=== PATIENT | female | born 1985 | race Caucasian/White ===

== ENCOUNTER 2016-05-07 00:38 | Emergency (ER) | payer SELFPAY ==
[~2016-05-07] VITALS: Ht 165.1 cm; Wt 68.5 kg
[2016-05-07 00:50] VITALS: Ht 165.1 cm; Wt 68.5 kg
--- NOTE | 2016-05-07 03:35 | ERD ---
ER Documentation Chief Complaint Date/Time DATE: 05/07/16 TIME: 03:34 Chief Complaint r flank pain that started today HPI 30-year-old female presents here in emergency department for complaints of right flank pain started today. Patient described the pain as sharp pain, 6/10 scale, not better or worse with anything. Patient denies any hematuria or dysuria. Patient denies any fever or chills. Patient denies any constipation diarrhea or vomiting. ROS All systems reviewed and are negative except as per history of present illness. Medications Home Meds Active Scripts Ondansetron (Ondansetron Odt) 4 Mg Tab.rapdis, 4 MG PO Q8 Y for NAUSEA AND/OR VOMITING, #30 TAB Prov:ESTRELLA ADHIKARI NP 05/07/16 Phenazopyridine Hcl* (Pyridium*) 200 Mg Tab, 200 MG PO TID Y for URINARY PAIN, # 6 TAB Prov:ESTRELLA ADHIKARI NP 05/07/16 Cephalexin* (Keflex*) 500 Mg Capsule, 500 MG PO QID for 10 Days, CAP Prov:ESTRELLA ADHIKARI [employer] M 05/07/16 Ibuprofen* (Motrin*) 600 Mg Tab, 600 MG PO Q6H Y for PAIN AND OR ELEVATED TEMP, #30 TAB Prov:ESTRELLA ADHIKARI NP 05/07/16 Tramadol HCl (Tramadol HCl) 50 Mg Tablet, 50 MG PO Q6 Y for PAIN, #20 TAB Prov:ESTRELLA ADHIKARI NP 05/07/16 Reported Medications [none] Unknown Strength No Conflict Check 05/07/16 Allergies Allergies: Coded Allergies: No Known Allergy (Unverified , 05/07/16) PMhx/Soc Medical and Surgical Hx: pt denies Medical Hx, pt denies Surgical Hx Hx Alcohol Use: Yes (occasionally) Hx Substance Use: Yes (occasionally) Hx Tobacco Use: No Smoking Status: Never smoker FmHx Family History: diabetes Physical Exam Vitals Vital Signs Date Time Temp Pulse Resp B/P Pulse Ox O2 Delivery O2 Flow Rate FiO2 05/07/16 00:50 99.7 108 18 152/94 98 Physical Exam GENERAL: The patient is well developed and appropriate for usual state of health, in no apparent distress. CHEST: Clear to auscultation bilaterally. There are no rales, wheezes or rhonchi. HEART: Regular rate and rhythm. No murmurs, clicks, rubs or gallops. No S3 or S4. ABDOMEN: Soft, nontender and nondistended. Good bowel sounds. No rebound or guarding. No gross peritonitis. No gross organomegaly or masses. No Brito sign or McBurney point tenderness. BACK: No midline or flank tenderness. EXTREMITIES: Equal pulses bilaterally. There is no peripheral clubbing, cyanosis or edema. No focal swelling or erythema. Full range of motion. Grossly neurovascularly intact. NEURO: Alert and oriented. Cranial nerves 2-12 intact. Motor strength in all 4 extremities with 5/5 strength. Sensation grossly intact. Normal speech and gait. SKIN: There is no apparent rash or petechia. The skin is warm and dry. HEMATOLOGIC AND LYMPHATIC: There is no evidence of excessive bruising or lymphedema. No gross cervical, axillary, or inguinal lymphadenopathy. Result Diagram: 05/07/165 05/07/16 0405 Results 24 hrs Laboratory Tests Test 05/07/16 04:05 Alanine Aminotransferase (ALT/SGPT) 27IU/L Albumin 4.5g/dl Albumin/Globulin Ratio 1.12 Alkaline Phosphatase 107IU/L Anion Gap 20 Aspartate Amino Transf (AST/SGOT) 20IU/L Basophils # 0.010^3/ul Basophils % 0.3% Blood Urea Nitrogen 23mg/dl Calcium Level 9.3mg/dl Carbon Dioxide Level 17mmol/L Chloride Level 108mmol/L Creatinine 0.63mg/dl Direct Bilirubin 0.00mg/dl Eosinophils # 0.010^3/ul Eosinophils % 0.0% Globulin 4.00g/dl Glucose Level 118mg/dl Hematocrit 44.1% Hemoglobin 14.9g/dl Indirect Bilirubin 0.1mg/dl Lipase 150U/L Lymphocytes # 1.310^3/ul Lymphocytes % 9.7% Mean Corpuscular Hemoglobin 31.3pg Mean Corpuscular Hemoglobin Concent 33.8g/dl Mean Corpuscular Volume 92.6fl Mean Platelet Volume 10.2fl Monocytes # 0.210^3/ul Monocytes % 1.7% Neutrophils # 11.510^3/ul Neutrophils % 88.3% Nucleated Red Blood Cells # 0.010^3/ul Nucleated Red Blood Cells % 0.0/100WBC Platelet Count 91155^3/UL Potassium Level 3.9mmol/L Red Blood Count 4.7710^6/ul Red Cell Distribution Width 13.0% Sodium Level 141mmol/L Total Bilirubin 0.1mg/dl Total Protein 8.5g/dl Urine Bacteria FEW Urine Bilirubin NEGATIVE Urine Clarity CLEAR Urine Color LT. YELLOW Urine Glucose NEGATIVE% Urine Hemoglobin NEGATIVE Urine Ketones 15 Urine Leukocyte Esterase TRACE Urine Microscopic RBC 0-2/HPF Urine Microscopic WBC 0-2/HPF Urine Nitrite NEGATIVE Urine Test NEGATIVE Urine Specific [place] 1.015 Urine Squamous Epithelial Cells FEW Urine Total Protein NEGATIVE Urine Urobilinogen 1.0 E.U./dL Urine pH 8.5 White Blood Count 13.110^3/ul Patient was given medication for pain here in emergency department, after treatment, patient verbalized feeling much better. Patient's pain is improved. PROCEDURE: CT Abdomen and Pelvis without contrast. CLINICAL INDICATION: Abdominal pain. TECHNIQUE: Routine tomographic images of the abdomen and pelvis were obtained from the domes of the diaphragm to the symphysis pubis. The patient was scanned withoutoral or intravenous contrast. Coronal and sagittal reformatted images were obtained from the axial source images. Images were reviewed on a high-resolution PACS workstation. The total exam CTDI equals 8.46 mGy and the total exam DLP equals 476.07 mGy-cm. One or more of the following dose reduction techniques were used: Automated exposure control, adjustment of the mA and / or kV according to patient size, or use of iterative reconstruction technique. COMPARISON: None. FINDINGS: The visualized portions of the lung bases are clear. Evaluation of the intra -abdominal solid organs is limited on this noncontrast examination. The liver appears normal in size. There is no intra or extrahepatic biliary dilatation. The gallbladder is unremarkable by CT criteria. The spleen, pancreas, and adrenal glands are unremarkable. The kidneys are symmetric in size. No renal, ureteral, or bladder calculi are identified. No perinephric inflammatory changes are identified. The urinary bladder is grossly unremarkable. The bowel demonstrates normal course and caliber. There is no evidence of bowel obstruction. The appendix is normal in appearance. No intraperitoneal free fluid, free air or abscess is identified. The uterus and adnexa are unremarkable. The aorta is normal in caliber. No retroperitoneal, mesenteric, or inguinal lymphadenopathy is identified. The osseous structures are unremarkable. No significant subcutaneous soft tissue abnormalities are seen. IMPRESSION: Limited, noncontrast CT the abdomen and pelvis. No acute intra-abdominal abnormality is appreciated. RPTAT: HH .Santa Mcdonnell MD, MD Date Time Electronically viewed and signed by .Santa Mcdonnell MD, MD on 05/07/2016 05 :22 .G/ CC: ESTRELLA ADHIKARI [employer] M Procedures/MDM Medical Decision Making: Patient flank pain nonspecific at this time, patient is trace of leukocytes in the urine, may be early urinary tract infection, will be treated. No symptoms of pyelonephritis at this time. There is low suspicion for abdominal emergencies at this time. Patients abdominal exam is normal at this time. Patients radiology exam does not show any abdominal emergencies at this time. There is low suspicion for appendicitis, cholecystitis, abdominal aortic aneurysms or peritonitis at this time. There is low suspicion for sepsis. Patient appears well and is hemodynamically stable. Disposition: Home. Condition: Stable Prescription tramadol, Keflex, ibuprofen, Zofran Instructions: Patient is advised to take medications as prescribed. Patient is advised to rest, increase fluid intake and do brat diet for next 1-2 days and progress as tolerated. Patient is advised that if symptoms are worse, severe abdominal pain, uncontrolled vomiting, high fever, severe flank pain, worst signs and symptoms, to return to the emergency department immediately. Otherwise, patient can follow up with primary care doctor in 5-7 days. Departure Diagnosis: Primary Impression: Flank pain Additional Impression: UTI (urinary tract infection) Urinary tract infection type: acute cystitis Hematuria presence: without hematuria Qualified Code: N30.00 - Acute cystitis without hematuria Condition: Stable Patient Instructions: Flank Pain, Uncertain Cause, Understanding Urinary Tract Infections (UTIs) Additional Instructions: Patient is advised to take medications as prescribed. Patient is advised to rest , increase fluid intake and do brat diet for next 1-2 days and progress as tolerated. Patient is advised that if symptoms are worse, severe abdominal pain , uncontrolled vomiting, high fever, severe flank pain, worst signs and symptoms , to return to the emergency department immediately. Otherwise, patient can follow up with primary care doctor in 5-7 days. ESTRELLA ADHIKARI NP May 07, 2016 03:35
[2016-05-07 04:43] LABS: ALBUMIN 4.5 g/dl (3.3-4.9); POTASSIUM 3.9 mmol/L (3.5-5.1)
[2016-05-07 04:45] LABS: BASOPHILS % 0.3 % (0.0-2.0); CREATININE 0.63 mg/dl (0.44-1.00); HEMATOCRIT 44.1 % (37.0-47.0); HEMOGLOBIN 14.9 g/dl (12.0-16.0); LYMPHOCYTES # 1.3 10^3/ul (0.8-2.9); LYMPHOCYTES % 9.7 % (15.0-51.0); MEAN CORPUSCULAR HEMOGLOBIN 31.3 pg (29.0-33.0); MEAN CORPUSCULAR HGB CONC 33.8 g/dl (32.0-37.0); MEAN CORPUSCULAR VOLUME 92.6 fl (82.0-101.0); MEAN PLATELET VOLUME 10.2 fl (7.4-10.4); MONOCYTE # 0.2 10^3/ul (0.3-0.9); MONOCYTES % 1.7 % (0.0-11.0); NEUTROPHIL # 11.5 10^3/ul (1.6-7.5); NEUTROPHILS % 88.3 % (39.0-77.0); PLATELET COUNT 266 10^3/UL (140-440); RED BLOOD COUNT 4.77 10^6/ul (4.20-5.40); UNCORRECTED WBC 13.1 10^3/ul (4.8-10.8); WHITE BLOOD COUNT 13.1 10^3/ul (4.8-10.8)
[2016-05-07 04:46] LABS: ALBUMIN/GLOBULIN RATIO 1.12; BILIRUBIN,INDIRECT 0.1 mg/dl (0-1.1); BILIRUBIN,TOTAL 0.1 mg/dl (0.2-1.3); CALCIUM 9.3 mg/dl (8.4-10.2); CONDITION 1; TOTAL PROTEIN 8.5 g/dl (6.1-8.1)
[2016-05-07 04:49] LABS: ADD UMIC YES; URINE BILIRUBIN (Dip) NEGATIVE (NEGATIVE); URINE BLOOD (Dip) NEGATIVE (NEGATIVE); URINE COLOR LT. YELLOW (YELLOW); URINE GLUCOSE (Dip) NEGATIVE (NEGATIVE); URINE KETONES (Dip) 15 (NEGATIVE); URINE LEUKOCYTE ESTERASE (Dip) TRACE (NEGATIVE); URINE NITRITE (Dip) NEGATIVE (NEGATIVE); URINE TOTAL PROTEIN (Dip) NEGATIVE (NEGATIVE); URINE UROBILINOGEN (Dip) 1.0 E.U./dL (0.1-1.0)
[2016-05-07 05:18] LABS: BACTERIA,URINE FEW; SQUAMOUS EPITHELIAL CELL,UR FEW; URINE RBCS 0-2 /HPF (0)
--- NOTE | 2016-05-07 05:23 | RADRPT ---
PROCEDURE: CT Abdomen and Pelvis without contrast. CLINICAL INDICATION: Abdominal pain. TECHNIQUE: Routine tomographic images of the abdomen and pelvis were obtained from the domes of th e diaphragm to the symphysis pubis. The patient was scanned withoutoral or intravenous contrast. C oronal and sagittal reformatted images were obtained from the axial source images. Images were revie wed on a high-resolution PACS workstation. The total exam CTDI equals 8.46 mGy and the total exam DL P equals 476.07 mGy-cm. One or more of the following dose reduction techniques were used: Automate d exposure control, adjustment of the mA and / or kV according to patient size, or use of iterative reconstruction technique. COMPARISON: None. FINDINGS: The visualized portions of the lung bases are clear. Evaluation of the intra-abdominal solid org ans is limited on this noncontrast examination. The liver appears normal in size. There is no intr a or extrahepatic biliary dilatation. The gallbladder is unremarkable by CT criteria. The spleen, pancreas, and adrenal glands are unremarkable. The kidneys are symmetric in size. No renal, ureteral, or bladder calculi are identified. No perine phric inflammatory changes are identified. The urinary bladder is grossly unremarkable. The bowel demonstrates normal course and caliber. There is no evidence of bowel obstruction. The appendix is normal in appearance. No intraperitoneal free fluid, free air or abscess is identified. The uterus and adnexa are unremarkable. The aorta is normal in caliber. No retroperitoneal, mesen teric, or inguinal lymphadenopathy is identified. The osseous structures are unremarkable. No significant subcutaneous soft tissue abnormalities are seen. IMPRESSION: Limited, noncontrast CT the abdomen and pelvis. No acute intra-abdominal abnormality is appreciated . RPTAT: HH .Santa Mcdonnell MD, Date Time Electronically viewed and signed by .Santa Mcdonnell MD, MD on 05/07/2016 05:22 .G/
[2016-05-07] MEDS ORDERED: ONDA4TAB14 PO (05:29)
[2016-05-07] MEDS ORDERED: PHEN-538 PO (05:29)
[2016-05-07] MEDS ORDERED: CEPH-443 PO (05:29)
[2016-05-07] MEDS ORDERED: IBUP-1542 PO (05:29)
[2016-05-07] MEDS ORDERED: TRAM50TA2 PO (05:29)
[2016-05-07] MEDS ORDERED: KETOROLAC 60 MG INJ IM STA (05:53)
[2016-05-07 06:16] VITALS: BP 127/93; PULSE 104; RESP 17; TEMP 97.4
== END 2016-05-07 06:17 | disposition home or self-care (01) ==
LOC: FTE 00:38
DX: R10.9 Unspecified abdominal pain (principal); N30.00 Acute cystitis without hematuria
CPT/HCPCS: 74176; 80053; 81001; 83690; 84703; 85025; J1885; 36415; 81003; 96372